=== PATIENT | male | born 1965 | race Caucasian/White ===

== ENCOUNTER 2017-01-14 16:49 | Emergency (ER) | payer BC ==
[~2017-01-14] VITALS: Ht 175.3 cm; Wt 70.0 kg
[~2017-01-14 16:49] MED LIST: AMOX875 PO; ASPI81; NAPR500 PO; TRAM50
[2017-01-14 16:50] VITALS: BP 134/93; PULSE 102; RESP 16; TEMP 97.7; O2SAT 97
[2017-01-14] MEDS ORDERED: FAMO40TA PO (18:23)
[2017-01-14] MEDS ORDERED: SODIUM CHLOR 0.9% 1000 ML INJ 1,000 ML IV SCH (18:38)
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
[2017-01-14 19:21] LABS: AUTOMATED NEUTROPHIL # 4.7 TH/MM3 (1.8-7.7); BASOPHIL # 0.1 TH/MM3 (0-0.2); BASOPHIL % 0.9 % (0.0-2.0); EOSINOPHIL # 0.2 TH/MM3 (0-0.4); EOSINOPHIL % 1.9 % (0.0-4.0); HEMATOCRIT 41.2 % (39.0-51.0); HEMO FLAGS DIFF FINAL; LYMPH % 33.6 % (9.0-44.0); LYMPHOCYTE # 2.8 TH/MM3 (1.0-4.8); MEAN CORPUSCULAR HEMOGLOBIN 29.6 PG (27.0-34.0); MEAN CORPUSCULAR HGB CONC 33.7 % (32.0-36.0); MONO % 7.8 % (0.0-8.0); NEUT % 55.8 % (16.0-70.0); PLATELET COUNT 261 TH/MM3 (150-450); RED BLOOD COUNT 4.69 MIL/MM3 (4.50-5.90); RED CELL DISTRIBUTION WIDTH 13.9 % (11.6-17.2); WHITE BLOOD COUNT 8.5 TH/MM3 (4.0-11.0)
[2017-01-14 19:30] LABS: BLOOD, URINE TRACE (NEG); COMMENT (UR) CULT NOT INDICATED; CULTURE IF INDICATED CULT NOT INDICATED; GLUCOSE,URINE NEG (NEG); KETONE, URINE NEG (NEG); MUCUS URINE FEW /lpf (OCC); NITRITE,URINE NEG (NEG); PH, URINE 5.5 (5.0-8.5); URINE COLOR YELLOW (YELLW/STRAW)
[2017-01-14 19:33] LABS: ANION GAP 8 MEQ/L (5-15); AST (GOT) 12 U/L (15-37); BICARBONATE 25.5 MEQ/L (21.0-32.0); BLOOD UREA NITROGEN 15 MG/DL (7-18); CHLORIDE 105 MEQ/L (98-107); GLOMERULAR FILTRATION RATE 91 ML/MIN (>89); POTASSIUM 3.9 MEQ/L (3.5-5.1); SODIUM (NA) 138 MEQ/L (136-145)
[2017-01-14 19:35] LABS: ALT (GPT) 19 U/L (12-78)
[2017-01-14 19:36] LABS: ALKALINE PHOSPHATASE 91 U/L (45-117); TOTAL BILIRUBIN ADULT 0.3 MG/DL (0.2-1.0)
[2017-01-14] MEDS ORDERED: IOHEXOL 350 MG/ML 10 ML VIAL (for RAD DIAG) IVCONTRAST ONE (19:59)
--- NOTE | 2017-01-14 20:45 | RADRPT ---
EXAM DATE/TIME: 01/14/2017 19:54 [facility] COMPARISON: No previous studies available for comparison. INDICATIONS : Left lower quadrant pain for 1 week IV CONTRAST: 100 cc Omnipaque 350 (iohexol) IV ORAL CONTRAST: No oral contrast ingested. RADIATION DOSE: 9.96 CTDIvol (mGy) MEDICAL HISTORY : Pancreatitis. SURGICAL HISTORY : Pelvic fracture ENCOUNTER: Initial ACUITY: 1 week PAIN SCALE: 6/10 LOCATION: Left lower quadrant TECHNIQUE: Volumetric scanning of the abdomen and pelvis was performed. Using automated exposure control and ad justment of the mA and/or kV according to patient size, radiation dose was kept as low as reasonably achievable to obtain optimal diagnostic quality images. DICOM format image data is available electro nically for review and comparison. FINDINGS: There are remote lower right rib fractures with mild basilar lung scarring. No acute findings in the liver, spleen, adrenals, kidneys or pancreas. Upper pole right renal cyst measures about 3.5 cm. No c alcified gallstones are seen. Within the right lobe posterior abdomen there is a herniation of a loop of colon through defect in th e lower right abdominal wall and right iliac bone. This does not result in any incarceration or obstr uction. There is previous fixation of the left acetabulum and left proximal femur. No pelvic masses or adenopathy. Prostate is enlarged. Scattered colonic diverticula noted without thao dence for diverticulitis. No free fluid. No bowel obstruction. No free air. CONCLUSION: 1. No acute findings within the abdomen and pelvis. 2. Herniation of a loop of colon through the bony defect in upper right iliac bone and soft tissue de fect in the lower right posterior abdomen. 3. Remote right sided rib fractures and left pelvic fractures with fixation of pelvic fractures and l eft proximal femur. Kelby Franklin MD on January 14, 2017 at 20:37 Board Certified Radiologist. This report was verified electronically.
[2017-01-14] MEDS ORDERED: ROBA500T PO (20:56)
[2017-01-14] MEDS ORDERED: DICL75TA PO (20:56)
[2017-01-14 21:35] VITALS: BP 141/71; PULSE 78; RESP 18; O2SAT 98
== END 2017-01-14 21:36 | disposition home or self-care (01) ==
LOC: NEPE 16:49
DX: R10.32 Left lower quadrant pain (principal); R30.0 Dysuria; F41.9 Anxiety disorder, unspecified; Z79.899 Other long term (current) drug therapy
CPT/HCPCS: 74177; 80053; 81001; 83605; 83690; 85025; 96360; 99284; J7030; Q9967

== ENCOUNTER 2017-02-28 17:49 | Emergency (ER) | payer BC ==
[~2017-02-28] VITALS: Ht 175.3 cm; Wt 70.0 kg
[~2017-02-28 17:49] MED LIST changes: -AMOX875 PO; -ASPI81; +DICL75TA PO; +FAMO40TA PO; -NAPR500 PO; +ROBA500T PO; -TRAM50
[2017-02-28] MEDS ORDERED: IOHEXOL 350 MG/ML 10 ML VIAL (for RAD DIAG) IVCONTRAST ONE (17:50)
[2017-02-28 17:51] VITALS: BP 138/92; PULSE 63; RESP 17; TEMP 98; O2SAT 97
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
[2017-02-28 18:07] VITALS: O2SAT 98
[2017-02-28] MEDS ORDERED: SODIUM CHLORIDE 0.9% FLUSH 10 ML FLUSH IV FLUSH PRN (18:15)
[2017-02-28 18:48] LABS: APTT (PATIENT) 24.2 SEC (24.3-30.1); PROTHROMBIN TIME - PATIENT 10.7 SEC (9.8-11.6)
[2017-02-28 18:57] LABS: ANION GAP 9 MEQ/L (5-15); AST (GOT) 17 U/L (15-37); BICARBONATE 26.3 MEQ/L (21.0-32.0); BLOOD UREA NITROGEN 17 MG/DL (7-18); CHLORIDE 102 MEQ/L (98-107); GLOMERULAR FILTRATION RATE 77 ML/MIN (>89); POTASSIUM 3.8 MEQ/L (3.5-5.1); SODIUM (NA) 137 MEQ/L (136-145)
[2017-02-28 19:01] LABS: ALKALINE PHOSPHATASE 92 U/L (45-117); ALT (GPT) 20 U/L (12-78); TOTAL BILIRUBIN ADULT 0.2 MG/DL (0.2-1.0)
[2017-02-28 19:02] LABS: AUTOMATED NEUTROPHIL # 3.5 TH/MM3 (1.8-7.7); BASOPHIL # 0.1 TH/MM3 (0-0.2); BASOPHIL % 0.8 % (0.0-2.0); EOSINOPHIL # 0.2 TH/MM3 (0-0.4); EOSINOPHIL % 2.3 % (0.0-4.0); HEMATOCRIT 44.2 % (39.0-51.0); HEMO FLAGS DIFF FINAL; LYMPH % 39.3 % (9.0-44.0); LYMPHOCYTE # 2.7 TH/MM3 (1.0-4.8); MEAN CELL VOLUME 88.8 FL (80.0-100.0); MEAN CORPUSCULAR HEMOGLOBIN 29.8 PG (27.0-34.0); MEAN CORPUSCULAR HGB CONC 33.5 % (32.0-36.0); MONO % 7.2 % (0.0-8.0); NEUT % 50.4 % (16.0-70.0); PLATELET COUNT 265 TH/MM3 (150-450); RED BLOOD COUNT 4.98 MIL/MM3 (4.50-5.90); RED CELL DISTRIBUTION WIDTH 13.4 % (11.6-17.2)
[2017-02-28 19:42] LABS: BACTERIA, URINE RARE /hpf; BLOOD, URINE SMALL (NEG); COMMENT (UR) CULT NOT INDICATED; CULTURE IF INDICATED CULT NOT INDICATED; GLUCOSE,URINE NEG (NEG); KETONE, URINE NEG (NEG); MUCUS URINE FEW /lpf (OCC); NITRITE,URINE NEG (NEG); PH, URINE 5.5 (5.0-8.5); URINE COLOR YELLOW (YELLW/STRAW)
--- NOTE | 2017-02-28 20:23 | RADRPT ---
EXAM DATE/TIME: 02/28/2017 19:15 [place] Corrected on: February 28, 2017; typographical error in the impression was corrected. [facility] COMPARISON: No previous studies available for comparison. INDICATIONS : Left sided abdomen pain. IV CONTRAST: 95 cc Omnipaque 350 (iohexol) IV ORAL CONTRAST: No oral contrast ingested. RADIATION DOSE: 4.99 CTDIvol (mGy) MEDICAL HISTORY : Diverticulitis. Renal calculi. SURGICAL HISTORY : Pelvic and hip surgery ENCOUNTER: Initial ACUITY: 3 days PAIN SCALE: 4/10 LOCATION: Left abdomen TECHNIQUE: Volumetric scanning of the abdomen and pelvis was performed. Using automated exposure control and ad justment of the mA and/or kV according to patient size, radiation dose was kept as low as reasonably achievable to obtain optimal diagnostic quality images. DICOM format image data is available electro nically for review and comparison. FINDINGS: LOWER LUNGS: Small oval opacity in the posterior lower right lung adjacent to healed fracture of the right 10th ri b. LIVER: Homogeneous density without lesion. There is no dilation of the biliary tree. No calcified gallston es. SPLEEN: Normal size without lesion. PANCREAS: Within normal limits. KIDNEYS: Normal in size and shape. There is no mass, stone or hydronephrosis. Exophytic cyst upper pole righ t kidney measuring 3.3 cm. ADRENAL GLANDS: Within normal limits. VASCULAR: There is no aortic aneurysm. BOWEL/MESENTERY: No dilated loops of small or large bowel. No evidence of free fluid. ABDOMINAL WALL: There is a right sided posterolateral chest muscular herniation of bowel into the soft tissues of the left flank. The defect in the lateral abdominal musculature measures 2.9 cm and a portion of the ri ght colon extends into the hernia. RETROPERITONEUM: There is no lymphadenopathy. BLADDER: No wall thickening or mass. REPRODUCTIVE: Within normal limits. INGUINAL: There is no lymphadenopathy or hernia. MUSCULOSKELETAL: Internal fixation hardware and plates about the posterior left acetabulum and proximal left femur. CONCLUSION: 1. Posterolateral TRANSMUSCULAR herniation of the colon into the subcutaneous tissues of the right fl ank. 2. No dilated loops of small or large bowel. Raheem Wilcox MD on February 28, 2017 at 20:01 Board Certified Radiologist. This report was verified electronically. Raheem Wilcox MD on February 28, 2017 at 20:35 Board Certified Radiologist. This report was verified electronically.
[2017-02-28 20:26] VITALS: PULSE 92
[2017-02-28] MEDS ORDERED: CIPR-9 PO (20:39)
[2017-02-28] MEDS ORDERED: KETOROLAC TROMETHAMINE 30 MG/ML (IVP) VIAL IV PUSH ONE (20:45)
[2017-02-28] MEDS ORDERED: CIPROFLOXACIN 500 MG TAB PO ONE (20:45)
== END 2017-02-28 20:57 | disposition home or self-care (01) ==
LOC: MERGE 17:49 → NEPD 17:49
DX: R10.32 Left lower quadrant pain (principal); R31.29 Other microscopic hematuria; Z79.899 Other long term (current) drug therapy
CPT/HCPCS: 74177; 80053; 81001; 83690; 85025; 85610; 85730; 96374; 99285; J1885; Q9967

== ENCOUNTER 2017-05-15 15:15 | Emergency (ER) | payer MEDICAID ==
[~2017-05-15] VITALS: Ht 175.3 cm; Wt 70.0 kg
[~2017-05-15 15:15] MED LIST changes: +CIPR-9 PO
[2017-05-15 15:17] VITALS: BP 132/76; PULSE 74; RESP 14; TEMP 97.8; O2SAT 99
[2017-05-15] MEDS ORDERED: KETOROLAC TROMETHAMINE 30 MG/ML (IVP) VIAL IV PUSH ONE (15:45)
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
[2017-05-15 16:22] LABS: AUTOMATED NEUTROPHIL # 3.9 TH/MM3 (1.8-7.7); BASOPHIL # 0.1 TH/MM3 (0-0.2); BASOPHIL % 0.9 % (0.0-2.0); EOSINOPHIL # 0.3 TH/MM3 (0-0.4); EOSINOPHIL % 3.9 % (0.0-4.0); HEMATOCRIT 45.1 % (39.0-51.0); HEMOGLOBIN 15.1 GM/DL (13.0-17.0); LYMPH % 37.1 % (9.0-44.0); LYMPHOCYTE # 2.9 TH/MM3 (1.0-4.8); MEAN CELL VOLUME 88.3 FL (80.0-100.0); MEAN CORPUSCULAR HEMOGLOBIN 29.5 PG (27.0-34.0); MEAN CORPUSCULAR HGB CONC 33.4 % (32.0-36.0); MEAN PLATELET VOLUME 9.3 FL (7.0-11.0); MONO % 8.7 % (0.0-8.0); MONOCYTE # 0.7 TH/MM3 (0-0.9); NEUT % 49.4 % (16.0-70.0); PLATELET COUNT 284 TH/MM3 (150-450); RED BLOOD COUNT 5.11 MIL/MM3 (4.50-5.90); RED CELL DISTRIBUTION WIDTH 13.4 % (11.6-17.2); WHITE BLOOD COUNT 7.8 TH/MM3 (4.0-11.0)
[2017-05-15 16:27] LABS: BILIRUBIN, URINE NEG (NEG); BLOOD, URINE NEG (NEG); GLUCOSE,URINE NEG (NEG); KETONE, URINE NEG (NEG); NITRITE,URINE NEG (NEG); PH, URINE 6.5 (5.0-8.5); URINE COLOR LIGHT-YELLOW (YELLW/STRAW); URINE LEUKOCYTE ESTERASE NEG (NEG)
[2017-05-15 16:39] LABS: ALBUMIN 4.1 GM/DL (3.4-5.0); ALT (GPT) 26 U/L (12-78); AST (GOT) 28 U/L (15-37); BICARBONATE 25.9 MEQ/L (21.0-32.0); BLOOD UREA NITROGEN 12 MG/DL (7-18); CALCIUM 8.7 MG/DL (8.5-10.1); CHLORIDE 103 MEQ/L (98-107); CREATININE 1.12 MG/DL (0.60-1.30); GLOMERULAR FILTRATION RATE 69 ML/MIN (>89); GLUCOSE,RANDOM 92 MG/DL (74-106); SODIUM (NA) 136 MEQ/L (136-145)
[2017-05-15 16:41] LABS: ALKALINE PHOSPHATASE 96 U/L (45-117); TOTAL BILIRUBIN ADULT 0.4 MG/DL (0.2-1.0); TOTAL PROTEIN 7.8 GM/DL (6.4-8.2)
--- NOTE | 2017-05-15 17:27 | RADRPT ---
EXAM DATE/TIME: 05/15/2017 16:51 [facility] COMPARISON: CT ABDOMEN & PELVIS W CONTRAST, February 28, 2017, 19:15. INDICATIONS : Left lower abdomen pain for two days. ORAL CONTRAST: No oral contrast ingested. RADIATION DOSE: 7.17 CTDIvol (mGy) MEDICAL HISTORY : Cardiovascular disease. SURGICAL HISTORY : abdominal surgery ENCOUNTER: Initial ACUITY: 2 days PAIN SCALE: 7/10 LOCATION: Left lower quadrant TECHNIQUE: Volumetric scanning of the abdomen and pelvis was performed. Using automated exposure control and ad justment of the mA and/or kV according to patient size, radiation dose was kept as low as reasonably achievable to obtain optimal diagnostic quality images. DICOM format image data is available electro nically for review and comparison. FINDINGS: CT Abdomen: The visualized liver, spleen, pancreas, adrenals are unremarkable. There is no ureteral s tone and there is no hydronephrosis on either side. There are 4 tiny stones in each kidney the large st ones measure almost 3-4 mm in size without hydronephrosis. Right lung base scar versus mild infilt rate is identified. There is no evidence for any appreciable pathological adenopathy, free fluid, or bowel obstruction. Approximate 3.2 cm simple cyst is present in the right kidney. CT pelvis: There is no evidence for mass, abscess formation, or any significant adenopathy within the pelvis there are postsurgical changes within the pelvic bones with harvestation site from right jay jay c bone and occluded side there is herniation of loops of bowel including colon the opening at this si te measures almost 4.7 cm. The prostate gland measures 4.2 x 5.6 cm in AP and transverse diameters. CONCLUSION: 1. There are tiny nonobstructing stones in both kidneys. 2. No change in hernia through defect of the right iliac bone on the right side. 3. Slight area of scarring right lower lobe posteriorly not significantly changed. Eva Casanova MD on May 15, 2017 at 17:19 Board Certified Radiologist. This report was verified electronically.
== END 2017-05-15 18:01 | disposition home or self-care (01) ==
LOC: NEPC 15:15
DX: R10.32 Left lower quadrant pain (principal); N20.0 Calculus of kidney; F41.9 Anxiety disorder, unspecified; Z72.0 Tobacco use; Z87.19 Personal history of other diseases of the digestive system
CPT/HCPCS: 74176; 80053; 81001; 83690; 85025; 96374; 99284; J1885